=== PATIENT | male | born 1975 | race Two or more races ===

== ENCOUNTER 2017-02-16 10:03 | Inpatient (IN) | payer MEDICAID ==
[~2017-02-16] VITALS: Ht 167.6 cm; Wt 79.5 kg
[2017-02-16 10:40] LABS: Basophils # (auto) 0 uL; Basophils % (auto) 0.2 % (0.0-2.0); Eosinophils # (auto) 0.3 uL; Eosinophils % (auto) 4.1 % (0.0-7.0); Hematocrit 46.8 % (41.0-53.0); Hemoglobin 15.6 g/dL (13.5-17.5); Lymphocytes # (auto) 1.5 uL; Lymphocytes % (auto) 18.2 % (10.0-50.0); Mean Corpuscular Hemoglobin 28.7 pg (28.0-32.0); Mean Corpuscular Hgb Conc. 33.4 g/dL (32.0-36.0); Mean Corpuscular Volume 85.9 fL (80.0-100.0); Mean Platelet Volume 8.9 fL (7.4-10.4); Monocytes # (auto) 0.5 uL; Monocytes % (auto) 6.4 % (0.0-12.0); Neutrophils # (auto) 5.9 uL; Neutrophils % (auto) 71.1 % (37.0-80.0); Platelet Count (auto) 288 10^3/uL (140-450); Red Cell Distribution Width 13.6 % (11.6-16.0); White Blood Cell 8.3 10^3/uL (4.4-10.8)
[2017-02-16 11:09] LABS: Albumin 4.2 g/dL (3.4-5.0); Alkaline Phosphatase 89 U/L (45-117); Anion Gap 9 (5-15); Aspartate Aminotransferase 25 U/L (15-37); Bilirubin, Total 1.3 mg/dL (0.2-1.0); Blood Urea Nitrogen 12 mg/dL (7-18); Calcium 8.8 mg/dL (8.5-10.1); Carbon Dioxide 27 mmol/L (21-32); Chloride 103 mmol/L (98-107); GFR African American 86 mL/min; GFR Non-African American 71 mL/min; Glucose 153 mg/dL (74-106); Potassium 4.3 mmol/L (3.5-5.1); Sodium 139 mmol/L (136-145); Total Protein 7.9 g/dL (6.4-8.2)
[2017-02-16] MEDS ORDERED: ASPirin 81 mg TAB PO ONE (17:15)
[2017-02-16] MEDS ORDERED: CYCLOBENZAPRINE HCL 10 MG TAB PO ONE (17:15)
[2017-02-16] MEDS: SODIUM CHLORIDE 0.9% 1,000 ML IV SCH (17:38)
[2017-02-16] MEDS ORDERED: TEMAZEPAM 15 MG CAP PO PRN (17:45)
[2017-02-16] MEDS ORDERED: DEXTROSE (50%) 50ML SYRG IV PRN (17:45)
[2017-02-16] MEDS ORDERED: PROCHLORPERAZINE EDISYLATE 5 MG/ML 2ML VIAL IV PRN (17:45)
[2017-02-16] MEDS ORDERED: MORPHINE SULF INJ 2 MG/ML SYRINGE 1ML IV PRN ×2 (17:45)
[2017-02-16] MEDS ORDERED: NITROGLYCERIN 0.4 MG SL TAB SL PRN (17:45)
[2017-02-16] MEDS ORDERED: ACETAMINOPHEN 500 MG TAB PO PRN (17:45)
[2017-02-16] MEDS ORDERED: LACTULOSE 20Gm/30ML SOLN PO PRN (17:45)
[2017-02-16] MEDS ORDERED: LORazepam 0.5 MG TAB PO PRN (17:45)
[2017-02-16] MEDS: NITROGLYCERIN 0.2MG/HR TOPICAL PATCH TD SCH (18:00)
[2017-02-16] MEDS ORDERED: LABETALOL HCL 5 MG/ML 4ML SYRINGE IV PRN ×2 (18:30)
[2017-02-16] MEDS: ENOXAPARIN SOD 40 MG/0.4 ML SYRINGE SC SCH (18:31)
[2017-02-16 20:00] VITALS: BP 120/98
[2017-02-16] MEDS: HYDROcodone-ACET 5/325MG TAB PO PRN (20:33)
[2017-02-16 21:00] VITALS: BP 129/98
[2017-02-16] MEDS ORDERED: ATORVASTATIN 20 MG TAB PO SCH (22:00)
[2017-02-16] MEDS: METOPROLOL TARTRATE 25 MG TAB PO SCH (22:37)
[2017-02-17] MEDS: SODIUM CHLORIDE 0.9% 1,000 ML IV SCH (05:06)
[2017-02-17] MEDS: HYDROcodone-ACET 5/325MG TAB PO PRN ×2 (05:24→12:25)
[2017-02-17] MEDS: ACCU-CHEK COMFORT CURVE STRIP VI SCH ×4 (05:27→17:38)
[2017-02-17 05:49] VITALS: BP 114/66
[2017-02-17 07:01] LABS: Cholesterol 151 mg/dL (0-200); HDL Cholesterol 32 mg/dL (40-59); LDL Cholesterol 104 mg/dL (<100); Triglycerides 111 mg/dL (<150)
[2017-02-17 08:46] VITALS: BP 128/72
[2017-02-17] MEDS: METOPROLOL TARTRATE 25 MG TAB PO SCH (09:47)
[2017-02-17] MEDS: ENOXAPARIN SOD 40 MG/0.4 ML SYRINGE SC SCH (09:48)
[2017-02-17] MEDS: NITROGLYCERIN 0.2MG/HR TOPICAL PATCH TD SCH (09:48)
[2017-02-17] MEDS ORDERED: ASPirin 81 mg TAB PO SCH (10:00)
[2017-02-17] MEDS ORDERED: ENALAPRIL MALEATE 2.5 MG TAB PO SCH (10:00)
[2017-02-17 12:37] VITALS: BP 128/92
[2017-02-17] MEDS ORDERED: BACL10TA PO (14:23)
[2017-02-17] MEDS ORDERED: [UNRECOGNIZED DRUG - CODE] (14:23)
[2017-02-17] MEDS ORDERED: IBU800T PO (14:23)
[2017-02-17 16:29] VITALS: BP 122/61
[2017-02-17 16:52] VITALS: BP 122/61
== END 2017-02-17 18:20 | disposition home or self-care (01) | DRG 347 ==
LOC: ER 10:09 → TELE 10:10 → TELE-WESTW 20:23
PROVIDERS: ADMIT Internal Medicine; ATTEND Hospitalist
DX: S13.4XXA Sprain of ligaments of cervical spine, initial encounter (principal); E11.65 Type 2 diabetes mellitus with hyperglycemia; I10 Essential (primary) hypertension; M48.02 Spinal stenosis, cervical region; Y99.8 Other external cause status; Y92.89 Other specified places as the place of occurrence of the external cause; I16.0 Hypertensive urgency; Y93.89 Activity, other specified; X58.XXXA Exposure to other specified factors, initial encounter; F17.210 Nicotine dependence, cigarettes, uncomplicated; Z82.49 Family history of ischemic heart disease and other diseases of the circulatory system; Z83.3 Family history of diabetes mellitus; Z91.81 History of falling; Z71.9 Counseling, unspecified
CPT/HCPCS: 36415; 71020; 72125; 72141; 80053; 80061; 82550; 82962; 83036; 84484; 85025; 85379; 85652; 86141; 93005; 94761; 96361; 96374; G0434

== ENCOUNTER 2019-03-25 11:59 | Emergency (ER) | payer MEDICAID ==
[~2019-03-25] VITALS: Ht 167.6 cm; Wt 74.8 kg
[~2019-03-25 11:59] MED LIST: BACL10TA PO; IBUP800T24 PO; [UNRECOGNIZED DRUG - CODE]
[2019-03-25 12:13] VITALS: BP 143/86
[2019-03-25] MEDS ORDERED: KETOROLAC TROMETH 60MG/2ML VIAL IM ONE (13:15)
== END 2019-03-25 13:43 | disposition home or self-care (01) ==
LOC: ER 11:59
DX: S63.502A Unspecified sprain of left wrist, initial encounter (principal); S29.012A Strain of muscle and tendon of back wall of thorax, initial encounter; S00.03XA Contusion of scalp, initial encounter; F17.210 Nicotine dependence, cigarettes, uncomplicated; W19.XXXA Unspecified fall, initial encounter; Y93.89 Activity, other specified; Y92.89 Other specified places as the place of occurrence of the external cause; Y99.8 Other external cause status
CPT/HCPCS: 70450; 71046; 72070; 72100; 73110; 73130; 96372; 99284; J1885

== ENCOUNTER 2019-10-02 21:49 | Emergency (ER) | payer MEDICAID ==
[~2019-10-02] VITALS: Ht 167.6 cm; Wt 74.8 kg
[2019-10-02 22:20] VITALS: BP 162/97
[2019-10-03] MEDS ORDERED: ACETAMINOPHEN/CODEINE#3 (300/30mg) TAB PO ONE (00:30)
== END 2019-10-03 01:16 | disposition home or self-care (01) ==
LOC: ER 21:50
DX: J06.9 Acute upper respiratory infection, unspecified (principal); F17.210 Nicotine dependence, cigarettes, uncomplicated; Z79.1 Long term (current) use of non-steroidal anti-inflammatories (NSAID); Z79.899 Other long term (current) drug therapy
CPT/HCPCS: 70450

== ENCOUNTER 2019-12-01 16:48 | Emergency (ER) | payer MEDICAID ==
[~2019-12-01] VITALS: Ht 167.6 cm; Wt 74.8 kg
[2019-12-01] MEDS ORDERED: TETANUS-DIPTH-ACEL PERTUSSIS 0.5ML SYRG IM ONE (20:45)
[2019-12-01 20:48] VITALS: BP 135/78
== END 2019-12-01 21:06 | disposition home or self-care (01) ==
LOC: ER 16:54
DX: S91.331A Puncture wound without foreign body, right foot, initial encounter (principal); I10 Essential (primary) hypertension; X58.XXXA Exposure to other specified factors, initial encounter; Y93.89 Activity, other specified; Y92.89 Other specified places as the place of occurrence of the external cause; Y99.8 Other external cause status
CPT/HCPCS: 90471; 90715

== ENCOUNTER 2021-02-16 07:10 | Emergency (ER) | payer SELFPAY ==
[~2021-02-16] VITALS: Ht 167.6 cm; Wt 83.9 kg
[~2021-02-16 07:10] MED LIST changes: -IBUP800T24 PO; +IBUP800T26 PO
[2021-02-16 07:29] VITALS: BP 157/113
== END 2021-02-16 07:57 | disposition home or self-care (01) ==
LOC: ER 07:10
DX: S61.011A Laceration without foreign body of right thumb without damage to nail, initial encounter (principal); I10 Essential (primary) hypertension; F17.210 Nicotine dependence, cigarettes, uncomplicated; Z79.899 Other long term (current) drug therapy; W26.8XXA Contact with other sharp object(s), not elsewhere classified, initial encounter; Y93.89 Activity, other specified; Y92.89 Other specified places as the place of occurrence of the external cause; Y99.8 Other external cause status
CPT/HCPCS: 12001

== ENCOUNTER 2021-05-01 10:45 | Emergency (ER) | payer SELFPAY ==
[~2021-05-01] VITALS: Ht 167.6 cm; Wt 79.4 kg
[2021-05-01] MEDS ORDERED: cloNIDine HCL 0.1 MG TAB PO ONE (11:00)
[2021-05-01 12:45] VITALS: BP 165/100
== END 2021-05-01 13:05 | disposition home or self-care (01) ==
LOC: ER 10:45
DX: S05.12XA Contusion of eyeball and orbital tissues, left eye, initial encounter (principal); S05.11XA Contusion of eyeball and orbital tissues, right eye, initial encounter; S09.90XA Unspecified injury of head, initial encounter; I10 Essential (primary) hypertension; F17.210 Nicotine dependence, cigarettes, uncomplicated; Z79.899 Other long term (current) drug therapy; Y08.89XA Assault by other specified means, initial encounter; Y93.89 Activity, other specified; Y92.89 Other specified places as the place of occurrence of the external cause; Y99.8 Other external cause status
CPT/HCPCS: 70450

== ENCOUNTER → 2021-07-06 | Emergency (ER) | payer SELFPAY ==
[~2021-07-06] VITALS: Ht 167.6 cm; Wt 79.4 kg
[~2021-07-06] MED LIST changes: +SODIUM BICARBONATE 8.4% INJ 50ML SYRINGE ONE
[2021-07-06 09:29] VITALS: BP 158/107
== END | disposition left against medical advice (07) ==
LOC: ER 09:28
DX: J11.1 Influenza due to unidentified influenza virus with other respiratory manifestations (principal); Z53.21 Procedure and treatment not carried out due to patient leaving prior to being seen by health care provider

== ENCOUNTER 2022-03-20 15:17 | Emergency (ER) | payer SELFPAY ==
[~2022-03-20] VITALS: Ht 167.6 cm; Wt 79.4 kg
[~2022-03-20 15:17] MED LIST changes: -SODIUM BICARBONATE 8.4% INJ 50ML SYRINGE ONE
[2022-03-20 15:18] VITALS: BP 194/94
[2022-03-20] MEDS ORDERED: KETOROLAC TROMETH 60MG/2ML VIAL IM ONE (17:00)
[2022-03-20] MEDS ORDERED: methylPREDNISolone SOD SUCC 125 MG/2 ML VL IM ONE (17:00)
[2022-03-20] MEDS ORDERED: INDO50CA82 PO (17:17)
[2022-03-20] MEDS ORDERED: COLC1CAP PO (17:17)
== END 2022-03-20 17:21 | disposition home or self-care (01) ==
LOC: ER 15:17
DX: M10.021 Idiopathic gout, right elbow (principal); I10 Essential (primary) hypertension; F17.210 Nicotine dependence, cigarettes, uncomplicated
CPT/HCPCS: 73080; 96372; 99284; J1885; J2930